=== PATIENT | male | born 1945 | race Caucasian/White ===

== ENCOUNTER 2018-08-10 06:25 | Day surgery (SDC) | payer MEDICARE, BC ==
[2018-08-10] VITALS (10 sets, daily range): BP systolic 120–147; BP diastolic 68–79; PULSE 66–72; RESP 16–18; Ht 167.6 cm; Wt 83.5 kg
[~2018-08-10] VITALS: Ht 167.6 cm; Wt 83.5 kg
[2018-08-10] MEDS ORDERED: LABETALOL HCL 20MG INJ IV PRN (07:00)
[2018-08-10] MEDS ORDERED: OXYCODONE/ACETAMINOPHEN (5/325) TAB PO PRN ×2 (07:00)
[2018-08-10] MEDS ORDERED: ALBUTEROL 0.083% (NEB) 2.5 MG/3 ML AMP HHN PRN (07:00)
[2018-08-10] MEDS ORDERED: FENTAnyl 50 MCG/ML VIAL IV PRN ×2 (07:00)
[2018-08-10] MEDS ORDERED: morphine (1 MG/ML) 10ML SYRINGE IV PRN ×2 (07:00)
[2018-08-10] MEDS ORDERED: DIPHENHYDRAMINE 50 MG INJ IV PRN (07:00)
[2018-08-10] MEDS ORDERED: HYDROmorphONE 1 MG/5 ML IV SYRINGE IV PRN ×3 (07:00)
[2018-08-10] MEDS ORDERED: ONDANSETRON 4 MG INJ IV PRN (07:00)
[2018-08-10] MEDS ORDERED: MEPERIDINE 25 MG INJ IV PRN (07:00)
[2018-08-10] MEDS ORDERED: METF500T24 PO (07:09)
[2018-08-10] MEDS ORDERED: AMLO5TAB4 PO (07:09)
[2018-08-10] MEDS ORDERED: LISI40TA3 PO (07:09)
--- NOTE | 2018-08-10 07:12 | PREAC ---
Date/Time of Note Date/Time of Note DATE: 08/10/18 TIME: 07:09 Anesthesia Eval and Record Evaluation Time Pre-Procedure Interview DATE: 08/10/18 TIME: 07:09 Age 72 Sex male NPO: 8 hrs Preoperative diagnosis L foot abscess/mas Planned procedure surgical excision of mass of the L foot w/ I&D Past Medical History Past Medical History: Includes Cardio: HTN, Dyslipidemia Endo: Diabetes Pulm: Smoking Hx (currently smokes cigarettes and weed) Hepatic: Other (drinks vodka daily, fatty liver) Psych: Anxiety, Other (OCD) Surgery & Anesthesia Issues No known issue Meds Anticoagulation: No Beta Jodie within 24 hr: No Reason Beta Jodie not given: Pt. not on B-Jodie Reported Medications Lisinopril* (Lisinopril*) 40 Mg Tablet, 40 MG PO DAILY, #30 TAB 08/10/18 Meds reviewed: Yes Allergies Coded Allergies: No Known Allergy (Unverified , 08/10/18) Allergies Reviewed: Yes Labs/Studies Labs Reviewed: Reviewed by anesthesiologist test: N/A Studies: ECG (nsr), CXR (no active dz) Pre-procedure Exam Airway: Adequate mouth opening, Adequate thyromental dist Mallampati: Mallampati III Teeth: Abnormal (teeth in poor condition, multiple broken teeth) Lung: Normal Heart: Normal ASA Physical Status ASA physical status: 3 Emergency: None Planned Anesthetic General/MAC: LMA, MAC Nerve block: Other (popliteal block) Pre-operative Attestations Prior to commencing anesthesia and surgery, the patient was re-evaluated, there was verification of: *The patient's identity *The results of appropriate recent lab work and preoperative vital signs *The above evaluation not changing prior to induction *Anesthetic plan, risk benefits, alternative and complications discussed with patient/family; questions answered; patient/family understands, accepts and wishes to proceed. ILANA SPEARS Aug 10, 2018 07:12
[2018-08-10] MEDS ORDERED: CEFAZOLIN 1 GM INJ ONE (07:31)
[2018-08-10] MEDS ORDERED: FENTAnyl 50 MCG/ML VIAL ONE (07:31)
[2018-08-10] MEDS ORDERED: LIDOCAINE 2% (SDV) 5 ML INJ ONE (07:31)
[2018-08-10] MEDS ORDERED: MIDAZOLAM 1 MG/ML 2 ML INJ ONE (07:31)
[2018-08-10] MEDS ORDERED: PROPOFOL 40 ML ONE (07:31)
--- NOTE | 2018-08-10 07:35 | HPN ---
Date/Time of Note Date/Time of Note DATE: 08/10/18 TIME: 07:35 Interval H&P Admission Note Pt. seen H&P reviewed: No system changes GARY ZHAO DPM Aug 10, 2018 07:35
[2018-08-10] MEDS ORDERED: LIDOCAINE 1% (MDV) 20 ML INJ INJ ONE (07:40)
[2018-08-10] MEDS ORDERED: BUPIVACAINE 0.5% 30 ML VIAL INJ ONE (07:40)
[2018-08-10] MEDS ORDERED: BUPIVACAINE 0.5% (SDV) 30 ML INJ ONE (07:54)
[2018-08-10] MEDS ORDERED: LIDOCAINE 1% (MDV) 20 ML INJ ONE (07:54)
--- NOTE | 2018-08-10 09:14 | OPPN ---
Date/Time of Note Date/Time of Note DATE: 08/10/18 TIME: 09:13 Operative Report Preoperative Diagnosis Soft tissue mass left foot Severe left foot deformity Left foot pain Diabetes mellitus Peripheral neuropathy Morbid obesity Postoperative Diagnosis Soft tissue mass left foot Severe left foot deformity Left foot pain Diabetes mellitus Peripheral neuropathy Morbid obesity Operation/Procedure Performed Surgical excision of left foot mass Surgeon see signature line itinerant teacher assistant none Anesthesia: MAC Estimated blood loss: minimal Transfusion Required none Specimen Soft tissue mass left foot Grafts/Implants none Complications none GARY ZHAO DPM Aug 10, 2018 09:14
--- NOTE | 2018-08-10 09:15 | OPR ---
Date/Time of Note Date/Time of Note DATE: 08/10/18 TIME: 09:14 Operative Report Procedure Date: Aug 10, 2018 Preoperative Diagnosis Severe deformity of the left foot and ankle Complete subluxation of the left talus Weightbearing left talus Soft tissue mass of the left foot Left foot pain Diabetes type 2 polyneuropathy Left foot infection Postoperative Diagnosis Severe deformity of the left foot and ankle Complete subluxation of the left talus Weightbearing left talus Soft tissue mass of the left foot Left foot pain Diabetes type 2 polyneuropathy Left foot infection Operation/Procedure Performed Surgical excision of left foot mass Surgical debridement of necrotic left foot Surgeon see signature line Pull Over Machine Operator None Anesthesia Type: general Estimated Blood Loss: minimal Transfusion none Specimen Large soft tissue mass of the left foot Grafts/Implants none Tubes/Drains None Complications none Pt Condition Post Procedure: stable Disposition: PACU Indications This is a pleasant 72-year-old male patient with multiple medical problems including diabetes mellitus type 2 with polyneuropathy, severe subluxation of the talus on the left lower extremity with a weightbearing talar head and current large soft tissue mass on the plantigrade side of the foot and necrotic tissue requiring surgical debridement and excision of painful mass of the left foot. I have discussed in great detail and counseled patient regarding his condition. Patient previously had refused surgical reconstruction of his left foot and ankle and has subsequently developed a severe deformity in which he weight bears on the head of the talus, his calcaneus and the first metatarsophalangeal joint. I have explained to the patient that because of the nature of his deformity, he will most likely have issues with this with the rest of his life and he may require multiple surgical procedures. Today's procedure is to remove the large soft tissue mass that is present. Risks and complications of this type of surgery was discussed with patient in great detail. The risks and complications discussed, include but are not limited to, postoperative infection, postoperative pain, chronic pain and disability, gait disturbance, failure of surgery to correct the problem, recurrence of the lesions, worsening of the condition, need for additional surgical procedures, deep venous thrombosis, limb loss and loss of life. The patient was given ample opportunity to ask questions and all questions were answered. Patient acknowledges understanding of the above discussion and agrees to the procedure. An informed consent was obtained, signed and placed in the chart. No guarantee or warranty was given or implied as to the outcome of the procedure either in verbal or written form. Procedure Description The patient was seen in the preoperative area and consent was obtained. Patient was then taken to the operating room and was placed on the operating table in the supine position. The patient was then placed under general anesthesia. A thigh tourniquet was applied to the left lower extremity. The left lower extremity was then scrubbed, prepped and draped in the usual aseptic manner. A timeout was called by the circulating nurse and everyone in the operating room agreed. The left lower extremity was exsanguinated using an Esmarch bandage and a thigh tourniquet was inflated to 300 mmHg pressure. Next, attention was directed to the plantar aspect of the left foot. A large soft tissue mass was palpable at the plantar aspect of the foot directly under the head of the talus which was completely subluxed out of the ankle joint and now plantigrade and weightbearing. A 6 cm incision was made directly over the plantar aspect of this area using a #10 blade. Bleeders were cauterized as necessary. Care was taken to identify vital neurovascular structures and they were protected as needed. A soft tissue mass was found and was found to be quite extensive. The mass was carefully dissected with sharp instrumentation and blunt instrumentation and finally removed and passed the back table. The mass will be sent to pathology for identification. The wound was flushed with copious amounts of sterile normal saline. The subcutaneous layer was closed using 4-0 Vicryl and the skin was closed using 0 Prolene in simple suture technique. Postoperative injection was given as an ankle injection with 20 cc of one-to-one mixture of 2% lidocaine plain and 0.5% Marcaine plain. Sterile dressing was applied to the left foot. The thigh tourniquet was deflated at this time and pr ompt hyperemic response was noted to the digits of the left foot. The patient tolerated the procedure and anesthesia well. He was transferred to recovery room with vital signs stable and vascular status intact to the left lower extremity. The patient will remain nonweightbearing on his left foot and will follow-up in my office in 1 week for postoperative checkup. GARY ZHAO DPM Aug 10, 2018 09:15
--- NOTE | 2018-08-10 09:17 | PAC ---
Date/Time of Note Date/Time of Note DATE: 08/10/18 TIME: 09:16 Post-Anesthesia Notes Post-Anesthesia Note Last documented vital signs Vital Signs Date Temp Pulse Resp B/P Pulse Ox O2 O2 Flow FiO2 Time (MAP) Delivery Rate 08/10/18 97.4 98.1 72 71 18 16 132/69 95 100 Room 07:39 091 (90) 120 Air face mask 4L Activity: WNL Respiratory function: WNL Cardiovascular function: WNL Mental status: Baseline Pain reasonably controlled: Yes Hydration appropriate: Yes Nausea/Vomiting absent: Yes ILANA SPEARS Aug 10, 2018 09:17
== END 2018-08-10 10:35 | disposition home or self-care (01) ==
LOC: SDS 06:25
PROVIDERS: ATTEND Podiatrist Foot & Ankle Surgery
DX: M77.52 Other enthesopathy of left foot and ankle (principal); E11.42 Type 2 diabetes mellitus with diabetic polyneuropathy; M21.962 Unspecified acquired deformity of left lower leg; I10 Essential (primary) hypertension; E78.5 Hyperlipidemia, unspecified
CPT/HCPCS: 28039; 82962; 88307; J0690; J2250; J3010

== ENCOUNTER 2018-08-18 12:38 | Emergency (ER) | payer BC, MEDICARE ==
[~2018-08-18] VITALS: Ht 167.6 cm; Wt 88.1 kg
[~2018-08-18 12:38] MED LIST: AMLO5TAB4 PO; LISI40TA3 PO; METF500T24 PO
[2018-08-18 13:14] VITALS: BP 133/68; PULSE 86; RESP 20; Ht 167.6 cm; Wt 88.1 kg
[2018-08-19] MEDS ORDERED: EZET10TA31 PO (08:30)
== END 2018-08-18 19:06 | disposition left against medical advice (07) ==
LOC: E/R 12:38
DX: Z53.21 Procedure and treatment not carried out due to patient leaving prior to being seen by health care provider (principal)

== ENCOUNTER 2018-08-19 06:09 | Emergency (ER) | payer MEDICARE, BC ==
[~2018-08-19] VITALS: Ht 167.6 cm; Wt 87.1 kg
[2018-08-19 06:15] VITALS: Ht 167.6 cm; Wt 87.1 kg
[2018-08-19] MEDS ORDERED: ACETAMINOPHEN 325 MG TAB PO PRN (08:00)
[2018-08-19] MEDS ORDERED: ONDANSETRON 4 MG INJ IV PRN (08:00)
[2018-08-19] MEDS ORDERED: EZET10TA31 PO (08:30)
--- NOTE | 2018-08-19 09:12 | CONS ---
Assessment/Plan Assessment/Plan Assessment/Plan (Daily) 72 yo male with multiple medical problems including DM with left foot soft tissue abscess s/p removal of soft tissue mass by Dr. Dickinson on 08/10. Recommendation: -admission recommended to medicine team. -IV antibiotics Vanco + Zosyn recommended -Plan for left foot I&D tomorrow 08/20/18 at 9:00 AM. -Patient to be NPO after midnight. -non weight bearing left lower extremity recommended. Please don't hesitate to contact me cell [phone], or my office [phone]. Consultation Date/Type/Reason Admit Date/Time Date/Time of Note DATE: 08/19/18 TIME: 08:59 Patient is a pleasant 72 yo male here for left foot. Patient had left foot mass removed by Dr. Dickinson on 08/10. Patient was seen in my office for follow as Dr. Dickinson is out of town. During visit, swelling across incision was seen with fluctuance. Attempted aspiration in office with over 30 cc of serosanguineous fluid drained. Patient was advised that given swelling, redness going up his leg he would benefit from being admitted to the hospital. Patient was sent to ED h ere yesterday and I spoke to charge physician. Patient left after waiting couple of hours and decided to show up today. He denies any fevers, chills, nausea or vomiting. Past Medical History Home Meds Reported Medications Ezetimibe* (Zetia*) 10 Mg Tablet, 10 MG PO DAILY, TAB 08/19/18 Metformin Hcl* (Metformin Hcl*) 500 Mg Tablet, 500 MG PO WITH BREAKFAST DINNE, #60 TAB 08/10/18 Amlodipine Besylate* (Norvasc*) 5 Mg Tablet, 5 MG PO DAILY, TAB 08/10/18 Lisinopril* (Lisinopril*) 40 Mg Tablet, 40 MG PO DAILY, #30 TAB 08/10/18 Medications Current Medications Ondansetron HCl (Zofran Inj) 4 mg BRIDGE ORDER PRN IV NAUSEA/VOMITING; Start 08/19/18 at 08:00; Stop 08/20/18 at 07:59 Acetaminophen (Tylenol Tab) 650 mg ER BRIDGE PRN PO .MILD PAIN 1-3 OR TEMP; Start 08/19/18 at 08:00; Stop 08/20/18 at 07:59 Allergies: Coded Allergies: No Known Allergy (Unverified , 08/19/18) Social History Smoking Status: Unknown if ever smoked Exam/Review of Systems Exam Vitals Vital Signs Date Temp Pulse Resp B/P (MAP) Pulse Ox O2 O2 Flow FiO2 Time Delivery Rate 08/19/18 97.8 95 18 148/79 96 06:15 (102) Exam Left lower extremity exam: Vasc: palpable pedal pulses Neuro: protective sensation intact. Derm: left medial foot incision closed. A soft tissue mass size of baseball noted on medial aspect of left foot, fluctuance noted. Minimal proximal streaking noted. Musk/skeletal: severe left foot deformity noted. Results Result Diagram: 08/19/18 0733 08/19/18 0733 Results 24hrs Laboratory Tests Test 08/19/18 07:33 08/19/18 07:34 White Blood Count 8.3 Red Blood Count 4.46 L Hemoglobin 13.2 L Hematocrit 40.2 L Mean Corpuscular Volume 90.1 Mean Corpuscular Hemoglobin 29.6 Mean Corpuscular Hemoglobin Concent 32.8 Red Cell Distribution Width 13.2 Platelet Count 186 Mean Platelet Volume 9.6 Immature Granulocytes % 0.200 Neutrophils % 77.7 H Lymphocytes % 12.0 L Monocytes % 8.2 Eosinophils % 1.2 Basophils % 0.7 Nucleated Red Blood Cells % 0.0 Immature Granulocytes # 0.020 Neutrophils # 6.5 Lymphocytes # 1.0 Monocytes # 0.7 Eosinophils # 0.1 Basophils # 0.1 Nucleated Red Blood Cells # 0.0 Prothrombin Time 13.5 Prothrombin Time Ratio 1.1 INR International Normalized Ratio 1.02 Activated Partial Thromboplast Time 30.2 Sodium Level 143 Potassium Level 4.1 Chloride Level 105 Carbon Dioxide Level 26 Anion Gap 12 Blood Urea Nitrogen 15 Creatinine 0.63 Est Glomerular Filtrat Rate mL/min Glucose Level 171 Calcium Level 9.7 Total Bilirubin 0.4 Direct Bilirubin 0.00 Indirect Bilirubin 0.4 Aspartate Amino Transf (AST/SGOT) 36 Alanine Aminotransferase (ALT/SGPT) 45 Alkaline Phosphatase 76 Troponin I < 0.012 Total Protein 7.2 Albumin 4.2 Globulin 3.00 Albumin/Globulin Ratio 1.40 Lipase 30 Urine Color YELLOW Urine Clarity CLEAR Urine pH 6.0 Urine Specific [place] 1.012 Urine Ketones NEGATIVE Urine Nitrite NEGATIVE Urine Bilirubin NEGATIVE Urine Urobilinogen 1+ H Urine Leukocyte Esterase NEGATIVE Urine Microscopic RBC 1 Urine Microscopic WBC 1 Urine Hemoglobin 1+ H Urine Glucose NEGATIVE Urine Total Protein NEGATIVE Medications Medication Current Medications Ondansetron HCl (Zofran Inj) 4 mg BRIDGE ORDER PRN IV NAUSEA/VOMITING; Start 08/19/18 at 08:00; Stop 08/20/18 at 07:59 Acetaminophen (Tylenol Tab) 650 mg ER BRIDGE PRN PO .MILD PAIN 1-3 OR TEMP; Sta rt 08/19/18 at 08:00; Stop 08/20/18 at 07:59 RICHARD CAMPOS DPM Aug 19, 2018 09:11
--- NOTE | 2018-08-19 11:17 | PDOCDIS ---
Discharge Instructions CONDITION [id number] Patient Condition: [id number] Good HOME CARE INSTRUCTIONS: [id number] Diet Instructions: [id number] Activity Restrictions: [id number] No Weight Bearing FOLLOW UP/APPOINTMENTS Follow-up Plan return to same day surgury 7 am tomorrow OTHER ORDERS: Other Orders: do not eat anything after midnight CRESENCIO FERNANDO MD Aug 19, 2018 11:17
--- NOTE | 2018-08-19 11:28 | ERD ---
ER Documentation Chief Complaint Chief Complaint POST OP DRAINAGE FROM LEFT FOOT HPI Patient is a 72-year-old male with diabetes and hypertension who presents with swelling of the left foot. He had a mass removed from his left foot on August 10. He was seen yesterday in follow-up and had " blood" from the area of swelling. The swelling is about baseball sized to his left foot. He was sent to the ER for surgery by Dr. Parekh the nail making machine tender. The plan is for surgery tomorrow morning. ROS All systems reviewed and are negative except as per history of present illness. Medications Home Meds Reported Medications Ezetimibe* (Zetia*) 10 Mg Tablet, 10 MG PO DAILY, TAB 08/19/18 Amlodipine Besylate* (Norvasc*) 5 Mg Tablet, 5 MG PO DAILY, TAB 08/10/18 Lisinopril* (Lisinopril*) 40 Mg Tablet, 40 MG PO DAILY, #30 TAB 08/10/18 Discontinued Reported Medications Metformin Hcl* (Metformin Hcl*) 500 Mg Tablet, 500 MG PO WITH BREAKFAST DINNE, #60 TAB 08/10/18 Allergies Allergies: Coded Allergies: No Known Allergy (Unverified , 08/19/18) PMhx/Soc History of Surgery: Yes (tonsilectomy, hernia repair sinus sx, bilaterla cataract sx ) Anesthesia Reaction: No Hx Neurological Disorder: No Hx Respiratory Disorders: No Hx Cardiac Disorders: Yes (htn, high cholesterol ) Hx Psychiatric Problems: No Hx Miscellaneous Medical Probl: Yes (left foot surgery 08/10/18, for abscess) Hx Alcohol Use: No Hx Substance Use: No Smoking Status: Unknown if ever smoked FmHx Family History: diabetes Physical Exam Vitals Vital Signs Date Temp Pulse Resp B/P (MAP) Pulse Ox O2 O2 Flow FiO2 Time Delivery Rate 08/19/18 97.8 95 18 148/79 96 06:15 (102) Physical Exam Const: No acute distress Head: Atraumatic Eyes: Normal Conjunctiva ENT: Normal External Ears, Nose and Mouth. Neck: Full range of motion. No meningismus. Resp: Clear to auscultation bilaterally Cardio: Regular rate and rhythm, no murmurs Abd: Soft, non tender, non distended. Normal bowel sounds Skin: Significant swelling to the left foot approximately baseball size, no fluctuance to suggest abscess, this appears to be hematoma Back: No midline or flank tenderness Ext: No cyanosis, or edema Neur: Awake and alert Psych: Normal Mood and Affect Result Diagram: 08/19/18 0708/19/1833 Results 24 hrs Laboratory Tests Test 08/19/18 07:33 08/19/18 07:34 White Blood Count 8.3 10^3/ul Red Blood Count 4.46 10^6/ul Hemoglobin 13.2 g/dl Hematocrit 40.2 % Mean Corpuscular Volume 90.1 fl Mean Corpuscular Hemoglobin 29.6 pg Mean Corpuscular Hemoglobin Concent 32.8 g/dl Red Cell Distribution Width 13.2 % Platelet Count 186 10^3/UL Mean Platelet Volume 9.6 fl Immature Granulocytes % 0.200 % Neutrophils % 77.7 % Lymphocytes % 12.0 % Monocytes % 8.2 % Eosinophils % 1.2 % Basophils % 0.7 % Nucleated Red Blood Cells % 0.0 /100WBC Immature Granulocytes # 0.020 10^3/ul Neutrophils # 6.5 10^3/ul Lymphocytes # 1.0 10^3/ul Monocytes # 0.7 10^3/ul Eosinophils # 0.1 10^3/ul Basophils # 0.1 10^3/ul Nucleated Red Blood Cells # 0.0 10^3/ul Prothrombin Time 13.5 Sec Prothrombin Time Ratio 1.1 INR International Normalized Ratio 1.02 Activated Partial Thromboplast Time 30.2 Sec Sodium Level 143 mmol/L Potassium Level 4.1 mmol/L Chloride Level 105 mmol/L Carbon Dioxide Level 26 mmol/L Anion Gap 12 Blood Urea Nitrogen 15 mg/dl Creatinine 0.63 mg/dl Est Glomerular Filtrat Rate mL/min mL/min Glucose Level 171 mg/dl Calcium Level 9.7 mg/dl Total Bilirubin 0.4 mg/dl Direct Bilirubin 0.00 mg/dl Indirect Bilirubin 0.4 mg/dl Aspartate Amino Transf (AST/SGOT) 36 IU/L Alanine Aminotransferase (ALT/SGPT) 45 IU/L Alkaline Phosphatase 76 IU/L Troponin I < 0.012 ng/ml Total Protein 7.2 g/dl Albumin 4.2 g/dl Globulin 3.00 g/dl Albumin/Globulin Ratio 1.40 Lipase 30 U/L Urine Color YELLOW Urine Clarity CLEAR Urine pH 6.0 Urine Specific [place] 1.012 Urine Ketones NEGATIVE mg/dL Urine Nitrite NEGATIVE mg/dL Urine Bilirubin NEGATIVE mg/dL Urine Urobilinogen 1+ mg/dL Urine Leukocyte Esterase NEGATIVE Sonja/ul Urine Microscopic RBC 1 /HPF Urine Microscopic WBC 1 /HPF Urine Hemoglobin 1+ mg/dL Urine Glucose NEGATIVE mg/dL Urine Total Protein NEGATIVE mg/dl Current Medications Medications Dose Sig/Mary Ann Start Time Status Last (Trade) Ordered Route PRN Stop Time Admin Dose Reason Admin Ondansetron 4 mg BRIDGE ORDER 08/19/18 HCl (Zofran PRN IV 08:00 Inj) NAUSEA/VOMITI 08/20/18 07:59 NG 650 mg ER BRIDGE 08/19/18 Acetaminophen PRN PO 08:00 (Tylenol .MILD PAIN 08/20/18 07:59 Tab) 1-3 OR TEMP Vancomycin 250 ml @ ONCE ONCE 08/19/18 UNV HCl 125 mls/hr IVPB 11:30 08/19/18 13:29 Piperacillin 100 ml @ ONCE ONCE 08/19/18 UNV Sod/ 200 mls/hr IVPB 11:30 Tazobactam 08/19/18 11:59 Sod Procedures/MDM EKG read by me: Rate/Rhythm: Regular rate and rhythm at a rate of 83 Intervals: Normal Impression: No evidence of ischemia or arrhythmia Chest x-ray and foot x-ray read by radiology. Smoking Cessation Therapy: Pt. was lectured for greater than 3 minutes on the health risks of continued smoking and the benefits of cessation. Patient is a 72-year-old male who presents with foot swelling. I believe this is likely the operative bleeding creating a large hematoma. The patient was seen by podiatry who will operate tomorrow morning. The patient was seen by Dr. Cook as well. The patient was initially going to be admitted but since the surgery is not going to happen until tomorrow morning the patient will be discharged and will return tomorrow morning to same-day surgery for admission for his surgery. He can return for any worsening symptoms. He is well- appearing otherwise. Departure Diagnosis: Primary Impression: Postoperative complication Surgical complication system/body Area: skin Surgical complication type: hematoma Procedure type: non-dermatologic Qualified Codes: L76.32 - Postprocedural hematoma of skin and subcutaneous tissue following other procedure Condition: Fair Patient Instructions: Post Op Wound Check, Bleeding Referrals: BETH,SYAMAK DPM Additional Instructions: Return tomorrow to SAME DAY SURGERY at 7AM for your scheduled surgery. ETHAN TOVAR MD Aug 19, 2018 11:28
[2018-08-19] MEDS ORDERED: VANCOMYCIN 1 GM (PMX) 250 ML IVPB ONE (11:30)
[2018-08-19] MEDS ORDERED: PIPER-TAZO 3.375 GM IV (PMX) 100 ML IVPB ONE (11:30)
--- NOTE | 2018-08-19 13:54 | CONS ---
DATE OF ADMISSION: 08/19/2018 DATE OF CONSULTATION: CHIEF COMPLAINT: Left foot swelling and tenderness. HISTORY OF PRESENT ILLNESS: A 72-year-old male with hypertension, type 2 diabetes mellitus, and left foot soft tissue mass, status post removal of the mass by Dr. Dickinson on 08/10/2018, was referred to Emergency Room after he developed significant swelling of the left foot. Patient was initially evalu ated by teacher kindergarten, Dr. Parekh in the office. Serosanguineous fluid 30 mL was removed from the area. The patient denies any fevers or chills. REVIEW OF SYSTEMS: He denies any chest pain or shortness of breath at rest or with exertion. Initia l evaluation revealed white blood cell count of 8.3, hemoglobin of 13.2 and a platelet count of 186. Basic metabolic panels were within normal limits. The patient was evaluated in the Emergency Room van Parekh. He plans to taken to him to the operating room for incision and drainage of a possible hematoma. X-ray of the foot showed chocolate type changes with severe pes planus/midfoot collapse a nd severe lateral subluxation of the talonavicular joint. PAST MEDICAL HISTORY: 1. Hypertension. 2. Type 2 diabetes mellitus. 3. Hyperlipidemia. MEDICATIONS PRIOR TO ADMISSION: 1. Amlodipine. 2. Zetia. 3. Lisinopril. 4. Metformin. PHYSICAL EXAMINATION: GENERAL: Well-developed, well-nourished male who is in no apparent distress. VITAL SIGNS: Stable. He is afebrile. HEENT: Extraocular muscles intact. Pupils are equal and reactive to light bilaterally. Sclerae are anicteric. Oropharynx is clear and moist. NECK: Supple, no JVD, no carotid bruits. LUNGS: Clear to auscultation bilaterally. CARDIAC: Regular rate and rhythm. No murmurs, rubs or gallops. ABDOMEN: Soft, nontender, nondistended, normoactive bowel sounds. EXTREMITIES: Left foot with marked edema the size of a baseball on the medial aspect. There is surr ounding erythema. NEUROLOGICAL: Nonfocal. ASSESSMENT: 1. A 72-year-old male with postoperative left foot edema, most likely due to hematoma. 2. Hypertension, well controlled. 3. Type 2 diabetes mellitus. 4. Hyperlipidemia. 5. Status post removal of left foot soft tissue mass on 08/10/2018. PLAN: 1. IV vancomycin x1 dose. 2. IV Zosyn x1 dose. 3. Discharge patient home based on his request. Return to same day surgery in the morning at 7:[address] Parekh plans to take him to the operating room at 9:00 a.m. Patient is cleared for proposed procedure. He was instructed to be n.p.o. after midnight. Dictated By: CRESENCIO KERN/DRE Conf#: [id number] DID#: [id number]
[2018-08-19 14:47] VITALS: BP 147/78; PULSE 83; RESP 18
== END 2018-08-19 14:49 | disposition home or self-care (01) ==
LOC: E/R 06:09 → CANBEDREQ 14:55
DX: L76.32 Postprocedural hematoma of skin and subcutaneous tissue following other procedure (principal); I10 Essential (primary) hypertension; E11.9 Type 2 diabetes mellitus without complications
CPT/HCPCS: 36415; 71045; 73630; 80053; 81001; 83690; 84484; 85025; 85610; 85730; 93005; 96365; 96366; 96367; 96375; 99285; J2543

== ENCOUNTER 2018-08-20 07:27 | Observation (INO) | payer MEDICARE, BC ==
[~2018-08-20] VITALS: Ht 167.6 cm; Wt 87.0 kg
[2018-08-20] VITALS (23 sets, daily range): BP systolic 105–157; BP diastolic 57–87; PULSE 62–78; RESP 12–30; Ht 167.6 cm; Wt 87.0 kg
[~2018-08-20 07:27] MED LIST changes: +EZET10TA31 PO; -METF500T24 PO
--- NOTE | 2018-08-20 08:16 | PREAC ---
Date/Time of Note Date/Time of Note DATE: 08/20/18 TIME: 08:14 Anesthesia Eval and Record Evaluation Time Pre-Procedure Interview DATE: 08/20/18 TIME: 08:14 Age 72 Sex male NPO: 8 hrs Preoperative diagnosis Left Foot Abscess Planned procedure Left Foot I&D Past Medical History Past Medical History: Includes Cardio: HTN, Dyslipidemia Endo: Diabetes Pulm: Smoking Hx Musculoskeletal: Osteoarthritis Recreational drugs: Marijuana Surgery & Anesthesia Issues No known issue Meds Anticoagulation: Yes Beta Jodie within 24 hr: Yes Reported Medications Ezetimibe* (Zetia*) 10 Mg Tablet, 10 MG PO DAILY, TAB 08/19/18 Amlodipine Besylate* (Norvasc*) 5 Mg Tablet, 5 MG PO DAILY, TAB 08/10/18 Lisinopril* (Lisinopril*) 40 Mg Tablet, 40 MG PO DAILY, #30 TAB 08/10/18 Discontinued Reported Medications Metformin Hcl* (Metformin Hcl*) 500 Mg Tablet, 500 MG PO WITH BREAKFAST DINNE, #60 TAB 08/10/18 Meds reviewed: Yes Allergies Coded Allergies: No Known Allergy (Unverified , 08/19/18) Allergies Reviewed: Yes Labs/Studies Labs Reviewed: Reviewed by anesthesiologist test: N/A Studies: ECG (n/a), CXR (n/a) Pre-procedure Exam Airway: Adequate mouth opening, Adequate thyromental dist Mallampati: Mallampati II Teeth: Normal Lung: Normal Heart: Normal ASA Physical Status ASA physical status: 3 Emergency: None Planned Anesthetic General/MAC: LMA Nerve block: Femoral (left), Sciatic (left) Planned Pain Management Single shot nerve block, Parenteral pain med Pre-operative Attestations Prior to commencing anesthesia and surgery, the patient was re-evaluated, there was verification of: *The patient's identity *The results of appropriate recent lab work and preoperative vital signs *The above evaluation not changing prior to induction *Anesthetic plan, risk benefits, alternative and complications discussed with patient/family; questions answered; patient/family understands, accepts and wishes to proceed. PRIMO DELEON MD Aug 20, 2018 08:16
[2018-08-20] MEDS ORDERED: PROPOFOL 20 ML ONE (08:24)
[2018-08-20] MEDS ORDERED: FENTAnyl 50 MCG/ML VIAL ONE (08:24)
[2018-08-20] MEDS ORDERED: MIDAZOLAM 1 MG/ML 2 ML INJ ONE (08:24)
[2018-08-20] MEDS ORDERED: CEFAZOLIN 1 GM INJ ONE (08:24)
[2018-08-20] MEDS ORDERED: ROPIVACAINE 0.5 % 30 ML VIAL ONE (08:25)
[2018-08-20] MEDS ORDERED: ROPIVACAINE 0.2% 20 ML VIAL ONE (08:25)
--- NOTE | 2018-08-20 08:28 | HPN ---
Date/Time of Note Date/Time of Note DATE: 08/20/18 TIME: 08:28 Interval H&P Admission Note Pt. seen H&P reviewed: No system changes RICHARD CAMPOS DPM Aug 20, 2018 08:28
[2018-08-20] MEDS ORDERED: DIPHENHYDRAMINE 50 MG INJ IV PRN ×2 (08:30→09:30)
[2018-08-20] MEDS ORDERED: OXYCODONE/ACETAMINOPHEN (5/325) TAB PO PRN (08:30)
[2018-08-20] MEDS ORDERED: FENTAnyl 50 MCG/ML VIAL IV PRN ×2 (08:30)
[2018-08-20] MEDS ORDERED: EPHEDrine SULFATE 50 MG/5 ML SYG IV PRN (08:30)
[2018-08-20] MEDS ORDERED: LABETALOL HCL 20MG INJ IV PRN (08:30)
[2018-08-20] MEDS ORDERED: hydrALAzine 20 MG INJ IV PRN (08:30)
[2018-08-20] MEDS ORDERED: METOCLOPRAMIDE 10 MG INJ IV PRN (08:30)
[2018-08-20] MEDS ORDERED: ONDANSETRON 4 MG INJ IV PRN ×2 (08:30→09:30)
[2018-08-20] MEDS ORDERED: HYDROmorphONE 1 MG/5 ML IV SYRINGE IV PRN ×2 (08:30)
[2018-08-20] MEDS ORDERED: MEPERIDINE 25 MG INJ IV PRN (08:30)
[2018-08-20] MEDS ORDERED: METOCLOPRAMIDE 10 MG INJ ONE (09:04)
[2018-08-20] MEDS ORDERED: ONDANSETRON 4 MG INJ ONE (09:04)
[2018-08-20] MEDS ORDERED: DEXAMETHASONE 4 MG/ML 5 ML INJ ONE (09:04)
[2018-08-20] MEDS ORDERED: POLYMYXIN/BACITRACIN 1L IRRIG IRR ONE (09:19)
--- NOTE | 2018-08-20 09:23 | OPPN ---
Date/Time of Note Date/Time of Note DATE: 08/20/18 TIME: 09:22 Operative Report Preoperative Diagnosis Left foot abscess. Postoperative Diagnosis Same Operation/Procedure Performed 1. Left foot incision and drainage. 2. Application of posterior splint. Surgeon see signature line hospital aides and assistants teacher Yisel Parekh DPM Anesthesia: general Estimated blood loss: 10 - 50 ml's Transfusion Required none Specimen Wound cultures left foot Abscess. Grafts/Implants none Complications none YISEL PAREKH DPM Aug 20, 2018 09:23
[2018-08-20] MEDS ORDERED: KETOROLAC 15 MG INJ IV PRN (09:30)
--- NOTE | 2018-08-20 09:33 | PAC ---
Date/Time of Note Date/Time of Note DATE: 08/20/18 TIME: 09:32 Post-Anesthesia Notes Post-Anesthesia Note Last documented vital signs T: 98.3 Activity: WNL Respiratory function: WNL Cardiovascular function: WNL Mental status: Baseline Pain reasonably controlled: Yes Hydration appropriate: Yes Nausea/Vomiting absent: Yes PRIMO DELEON MD Aug 20, 2018 09:33
--- NOTE | 2018-08-20 09:38 | OPR ---
Date/Time of Note Date/Time of Note DATE: 08/20/18 TIME: 09:31 Operative Report Preoperative Diagnosis Left foot Abscess Postoperative Diagnosis Same Operation/Procedure Performed 1. Left foot incision and drainage. 2. Application of posterior splint left foot and ankle. Surgeon see signature line Dust Operator None Anesthesia Type: general Estimated Blood Loss: 10 - 50 ml's Transfusion none Specimen Left foot wound cultures. Grafts/Implants none Complications none Pt Condition Post Procedure: stable Procedure Description Patient brought into operation room and placed on operating table in supine position. Patient given 1 gm Ancef. Patient given left popliteal block by bernabe ologist. Left foot was prepped and draped in usual sterile manner. Attention taken to left foot medial foot noted abscess. Patient has a previous incision from his previous surgery. The incision was made about 2 cm. Deepened with blunt dissection. No purulent drainage noted. Serosanguineous drainage noted over 15 cc. Deep cultures taken. Area flushed with normal saline mixed with bacitracin. Wound packed with 1/2 inch iodoform, proximal aspect of incision closed with 4.0 Prolene. Appropriate dressing with 4x4 gauze, melva and mildred wrap. 5x30 posterior splint applied and foot and ankle was appropriately padded using 4x4 Webril. Patient tolerated procedure well. He will be non weight bearing. Antibiotics will be called in to his pharmacy. Patient to follow up with Dr. Dickinson on 08/23/18, he has appointment set up already. RICHARD CAMPOS DPM Aug 20, 2018 09:38
[2018-08-20] MEDS: CEFAZOLIN 1 GM/50 ML (PMX) 50 ML IVPB SCH ×2 (13:27→21:31)
[2018-08-20] MEDS ORDERED: GLUCOSE GEL 15 GRAM TUBE BUCCAL PRN (16:00)
[2018-08-20] MEDS ORDERED: GLUCOSE GEL 15 GRAM TUBE PO PRN ×2 (16:00)
[2018-08-20] MEDS ORDERED: GLUCAGON 1 MG INJ IM PRN (16:00)
[2018-08-20] MEDS ORDERED: DEXTROSE 50% 50 ML SYRINGE IV PRN ×2 (16:00)
[2018-08-20] MEDS: ACCU-CHEK XX SCH ×2 (17:35→21:31)
[2018-08-20] MEDS: metFORMIN 500 MG TAB PO SCH (18:05)
[2018-08-21 02:00] VITALS: BP 153/77; PULSE 75; RESP 17
[2018-08-21] MEDS ORDERED: ACCU-CHEK XX SCH (02:00)
[2018-08-21] MEDS: CEFAZOLIN 1 GM/50 ML (PMX) 50 ML IVPB SCH (06:04)
[2018-08-21] MEDS: HYDROCODONE/APAP (10/325) TAB PO PRN ×2 (06:55→13:46)
[2018-08-21] MEDS: ACCU-CHEK XX SCH ×2 (07:30→11:30)
[2018-08-21] MEDS: INSULIN ASPART [NOVOLOG] 3 ML PEN SC SCH ×2 (08:13→12:00)
[2018-08-21] MEDS: metFORMIN 500 MG TAB PO SCH (08:13)
[2018-08-21 08:16] VITALS: BP 142/77; PULSE 67; RESP 18
[2018-08-21] MEDS ORDERED: AMLODIPINE 5 MG TAB PO SCH (09:00)
[2018-08-21] MEDS ORDERED: LISINOPRIL 20 MG TAB PO SCH (09:00)
[2018-08-21] MEDS ORDERED: METF-849 PO (09:05)
[2018-08-21] MEDS ORDERED: CEPH-443 PO (09:05)
[2018-08-21] MEDS ORDERED: HYDR-3609 PO (09:05)
--- NOTE | 2018-08-21 09:06 | PDOCDIS ---
Discharge Instructions CONDITION [id number] Patient Condition: [id number] Good HOME CARE INSTRUCTIONS: [id number] Diet Instructions: [id number] Activity Restrictions: Hnsjw2d No Weight Bearing [id number] Activity Restrictions Comment: [id number] NWFranco LLE FOLLOW UP/APPOINTMENTS Follow-up Plan pcp [address] Parekh 1 week CRESENCIO FERNANDO MD Aug 21, 2018 09:06
--- NOTE | 2018-08-21 17:18 | DS ---
DATE OF ADMISSION: 08/20/2018 DATE OF DISCHARGE: 08/21/2018 DISCHARGE DIAGNOSES: 1. Left foot postoperative hematoma. 2. Status post incision and drainage of left foot hematoma. 3. Status post resection of left foot soft tissue mass on 08/10/2018. 4. Hypertension. 5. Type 2 diabetes mellitus. HOSPITAL COURSE: A 72-year-old male with a history of hypertension and type 2 diabetes mellitus as w ell as left foot soft tissue mass, status post resection of the mass on 08/10/2018 presented for elec tive incision and drainage of left foot hematoma and possible abscess. The patient was taken to the operating room by Dr. Parekh. He underwent incision and drainage of hematoma. No purulent drainage was noted. 15 mL of serosanguineous drainage was obtained. The patient received IV antibiotics duri ng the hospitalization. Patient insists on going home. Even though this was not a safe discharge, h e declined care home facility. The patient requested wheelchair and a walker. I ordered home health for nursing and home health physical therapy. The nurses tried to convince him as well, but c ontinuously refused skilled facility placement. MEDICATIONS ON DISCHARGE: 1. Amlodipine 5 mg daily. 2. Zetia 10 mg daily. 3. Lisinopril 40 mg daily. 4. [place] 1 tablet every 6 hours as needed. 5. Keflex 500 mg q.8 hours for 5 days. FOLLOWUP: 1. Follow up with PCP. 2. Follow up with Dr. Parekh in 1 week. Dictated By: CRESENCIO KERN/DRE Conf#: [id number] DID#: [id number] CC: RICHARD PAREKH DPHeath;*EndCC*
== END 2018-08-21 14:00 | disposition home or self-care (01) ==
LOC: SDS 07:27 → REC 10:36 → PP2 11:15
PROVIDERS: ADMIT Podiatrist Foot & Ankle Surgery; ATTEND Podiatrist Foot & Ankle Surgery
DX: L76.32 Postprocedural hematoma of skin and subcutaneous tissue following other procedure (principal); I10 Essential (primary) hypertension; E11.9 Type 2 diabetes mellitus without complications; Y83.8 Other surgical procedures as the cause of abnormal reaction of the patient, or of later complication, without mention of misadventure at the time of the procedure
CPT/HCPCS: 10140; 82962; 87070; 87075; 87102; 97162; G0378; J0690; J1100; J1815; J2250; J2405; J2765; J2795; J3010